=== PATIENT | female | born 1955 | race Caucasian/White ===

== ENCOUNTER → 2021-02-10 | Day surgery (SDC) | payer OTHER ==
[~2021-02-10] VITALS: Ht 157.5 cm; Wt 80.7 kg
[~2021-02-10] MED LIST: ACETAMINOPHEN325 MG PO; BACLOFEN 10MG T10 MG PO; BENADRYL25 M1 PO; BOTOX100 UNIT IJ; BUDESONIDE ER9 MG PO; CERTAGEN1 EACH PO; CORGARD80 MG PO; CULTURELLE1 EAC1 PO; CULTURELLE1 EACH PO; DEXILANT30 MG PO; FEOSOL325 MG PO; FLONASE ALLER15.8 ML; HCTZ25 MG PO; LAXATIVE5 M1 PO; MIGRANAL1 ML INH; MIGRANAL1 ML PO; MOBIC7.5 MG PO; NADOLOL80 MG PO; NEURONTIN300 MG PO; NEXIUM40 MG PO; NORVASC5 MG PO; OS-CAL500 MG PO; OXY-IR 5MG5 MG PO; TRAMADOL HCL50 MG PO; VITAMIN B122500 MC1 PO; VITAMIN D325 MC4 PO; VITAMIN E100 UNIT PO; VITAMIN E400 UNI2 PO; ZANAFLEX4 MG PO; ZANTAC150 MG PO; ZYRTEC10 M3 PO; ZYRTEC10 MG PO
== END | disposition home or self-care (01) ==
LOC: FAS 08:02
DX: K22.2 Esophageal obstruction (principal); K29.80 Duodenitis without bleeding; K29.50 Unspecified chronic gastritis without bleeding; K31.7 Polyp of stomach and duodenum; K31.9 Disease of stomach and duodenum, unspecified; K21.9 Gastro-esophageal reflux disease without esophagitis; K22.4 Dyskinesia of esophagus; K74.60 Unspecified cirrhosis of liver; K75.81 Nonalcoholic steatohepatitis (NASH); E78.5 Hyperlipidemia, unspecified; I10 Essential (primary) hypertension; E11.9 Type 2 diabetes mellitus without complications; J45.909 Unspecified asthma, uncomplicated; F32.9 Major depressive disorder, single episode, unspecified; Z88.6 Allergy status to analgesic agent; Z88.8 Allergy status to other drugs, medicaments and biological substances; Z79.899 Other long term (current) drug therapy
CPT/HCPCS: C1726; J2250; J7120

== ENCOUNTER 2021-11-29 18:32 | Emergency (ER) | payer OTHER ==
[2021-11-29 19:27] LABS: BASOPHIL 0.6 % (0-2); EOSINOPHIL 1.8 % (0-7); HGB 14.8 g/dl (12.5-16.0); LYMPHOCYTE 31.6 % (15-48); MCH 29.6 pg (25.0-31.0); MCHC 33.6 g/dL (32.0-36.0); MONOCYTE 11.2 % (0-12); MPV 12.1 fL (6.0-9.5); NEUTROPHIL 54.7 % (41-80); NRBC 0; PLT 186 K/uL (150-400); RDW 12.7 % (11.5-14.0); WBC 8.2 K/uL (4.0-10.5)
[2021-11-29 19:44] LABS: ALBUMIN 3.8 g/dL (3.4-5.0); BILIRUBIN - TOTAL 0.6 mg/dL (0.2-1.0); BUN/CREAT RATIO (CALC) 21.7 RATIO; CREATININE 0.69 mg/dL (0.51-0.95); GLOBULIN (CALCULATION) 3.1 g/dL; POTASSIUM 3.8 mmol/L (3.5-5.1); TOTAL PROTEIN 6.9 g/dL (6.4-8.2)
[2021-11-29 20:40] LABS: CORONAVIRUS 2019 SARS-COV-2 NEGATIVE (NEGATIVE); INFLUENZA A NAA NEGATIVE (NEGATIVE)
== END 2021-11-29 21:15 | disposition home or self-care (01) ==
LOC: FER 18:32
PROVIDERS: Emergency Medicine
DX: R42 Dizziness and giddiness (principal); B02.9 Zoster without complications; I10 Essential (primary) hypertension; E11.9 Type 2 diabetes mellitus without complications; J45.909 Unspecified asthma, uncomplicated; Z88.6 Allergy status to analgesic agent; Z88.1 Allergy status to other antibiotic agents; Z88.8 Allergy status to other drugs, medicaments and biological substances; Z79.899 Other long term (current) drug therapy; Z20.822 Contact with and (suspected) exposure to COVID-19
CPT/HCPCS: 36415; 80053; 83690; 84484; 85025; 93005; J7030; U0002